=== PATIENT | female | born 1995 | race Caucasian/White ===

== ENCOUNTER 2019-05-04 11:18 | Emergency (ER) | payer MEDICAID ==
[2019-05-04 11:23] VITALS: BP_SYST 120
--- NOTE | 2019-05-04 11:29 | NUR ---
Patient to ER bed 2 to gown for evaluation. Side rails up. Report given to BRODERICK Verdugo.
--- NOTE | 2019-05-04 11:31 | NUR ---
ER Dr. Herrera at bedside examining patient.
--- NOTE | 2019-05-04 11:40 | NUR ---
pt arrives from home w/ c/o right flank pain and pain on voiding. Pt is currently afebrile.
[2019-05-04] MEDS ORDERED: cefTRIAXone 1 GM in LIDOCAINE 1%, 20 ML MDV 2.1 ML IM ONE (11:45)
--- NOTE | 2019-05-04 12:00 | NUR ---
medicated the pt w/ Rocephin IM per MD order
--- NOTE | 2019-05-04 12:11 | NUR ---
Patient given written and verbal discharge instructions and verbalizes understanding. ER MD discussed with patient the results and treatment provided. Patient in stable condition. ID arm band removed. Rx of Macrobid given. Patient educated on pain management and to follow up with PMD. Pain Scale 3/10 Opportunity for questions provided and answered. Medication side effect fact sheet provided.
== END 2019-05-04 12:11 | disposition home or self-care (01) ==
LOC: SED 11:18
DX: N39.0 Urinary tract infection, site not specified (principal); J45.909 Unspecified asthma, uncomplicated
CPT/HCPCS: 96372; 99283; J0696; J2001

== ENCOUNTER 2021-03-05 13:57 | Emergency (ER) | payer MEDICAID, SELFPAY ==
[~2021-03-05] VITALS: Ht 154.9 cm; Wt 65.3 kg
[2021-03-05 13:57] VITALS: BP_SYST 135
--- NOTE | 2021-03-05 14:00 | NUR ---
BROUGHT BACK TO BED #4 AND TRIAGED. REPORT GIVEN TO RACHEL
--- NOTE | 2021-03-05 14:15 | NUR ---
patient to ed at this time with flu like symptoms and nausea. comfort and safety implemeneted and will be maintained.
[2021-03-05] MEDS ORDERED: LOPE2CAP PO (14:24)
[2021-03-05] MEDS: ONDANSETRON 4 MG ODT TAB PO ONE (14:24)
[2021-03-05] MEDS ORDERED: ONDA4TAB5 PO (14:24)
--- NOTE | 2021-03-05 14:24 | NUR ---
patient unable to urinate at this time. has urine specimen cup at bedside. adminsitered zofran odt for nausea.
[2021-03-05 15:08] VITALS: BP_SYST 100
--- NOTE | 2021-03-05 16:33 | NUR ---
patient discharged in stable condition. patient discharged with prescription and work note. verbalized understanding of discharged instructions.
--- NOTE | 2021-03-05 16:37 | NUR ---
Patient left to go home before flu test could be completed. MD notified
== END 2021-03-05 16:32 | disposition home or self-care (01) ==
LOC: SED 13:57
DX: B34.9 Viral infection, unspecified (principal); J45.909 Unspecified asthma, uncomplicated; Z20.822 Contact with and (suspected) exposure to COVID-19; Z79.899 Other long term (current) drug therapy
CPT/HCPCS: 81002; 81025; 86710; 99283; Q0162; U0003